=== PATIENT | male | born 2000 | race Asian ===

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

== ENCOUNTER 2022-07-31 09:45 | Emergency (ER) | payer OTHER ==
[~2022-07-31] VITALS: Ht 170.2 cm; Wt 76.0 kg
[~2022-07-31 09:45] MED LIST changes: -KEP500 PO; +OXCA600T2 PO
[2022-07-31 09:48] VITALS: BP 133/79
[2022-07-31] MEDS ORDERED: predniSONE 20 MG TAB PO ONE (10:10)
[2022-07-31] MEDS ORDERED: ALBUTEROL HFA MDI 90 MCG/ACTUATION 8 GM INH ONE (10:10)
[2022-07-31] MEDS ORDERED: PRED20TA5 PO (11:48)
[2022-07-31] MEDS ORDERED: ALBU0.0912 IH (11:48)
[2022-07-31 12:04] VITALS: BP 113/85
== END 2022-07-31 12:04 | disposition home or self-care (01) ==
LOC: MED 09:45
DX: B34.9 Viral infection, unspecified (principal); Z20.822 Contact with and (suspected) exposure to COVID-19; J98.01 Acute bronchospasm; Z79.899 Other long term (current) drug therapy
CPT/HCPCS: 71045; 87426; 87804; 94664; 94760; 99284; J7512; Q0092